=== PATIENT | female | born 1995 | race Caucasian/White ===

== ENCOUNTER 2020-08-06 21:31 | Emergency (ER) | payer OTHER ==
[2020-08-07] MEDS ORDERED: LODINE CAP 300300 MG PO (00:51)
== END 2020-08-07 01:15 | disposition home or self-care (01) ==
LOC: ER1 21:31
DX: S93.402A Sprain of unspecified ligament of left ankle, initial encounter (principal); X50.1XXA Overexertion from prolonged static or awkward postures, initial encounter; Y92.89 Other specified places as the place of occurrence of the external cause
CPT/HCPCS: 73610; 99283